=== PATIENT | female | born 1990 | race Caucasian/White ===

== ENCOUNTER 2017-01-06 15:08 | Emergency (ER) | payer OTHER ==
[2017-01-06 15:18] VITALS: BP 123/73; PULSE 88; TEMP 98.3; BMI 21.6
--- NOTE | 2017-01-06 16:15 | PDOC ---
Post Exposure HPI - General Chief Complaint: Non EmpBld/Body Flud Exposure Stated Complaint: STABBED BY NEEDLE Time Seen by Provider: 01/06/17 15:27 - History of Present Illness Initial Comments: 01/06/17 15:50 CHIEF COMPLAINT: needle stick HISTORY OF PRESENT ILLNESS: 26 yo F with no PMH presents to fast track s/p needle exposure. 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 She reports that she "did not see anything suspicious" in the patient' s chart but requests that she get tested for HIV, Hep C, Hep B, and syphilis " so I can say that I did my part and the facility can do theirs and follow up to test the patient." She denies any current symptoms. PAST MEDICAL HISTORY: Denies past medical history FAMILY HISTORY: Denies SOCIAL HISTORY: Denies tobacco, alcohol, illicit drug use. SURGICAL HISTORY: Denies ALLERGIES: PCN REVIEW OF SYSTEMS General/Constitutional: Denies fever or chills. Denies weakness, weight change. HEENT: Denies change in vision. Denies ear pain or discharge. Denies sore throat. Cardiovascular: Denies chest pain or shortness of breath. Respiratory: Denies cough, wheezing, or hemoptysis. Gastrointestinal: Denies nausea, vomiting, diarrhea or constipation. Denies rectal bleeding. Genitourinary: Denies dysuria, frequency, or change in urination. Musculoskeletal: Denies joint or muscle swelling or pain. Denies neck or back pain. Skin and breasts: Denies rash or easy bruising. Neurologic: Denies headache, vertigo, loss of consciousness, or loss of sensation. PHYSICAL EXAM General Appearance: Well-appearing, appropriately dressed. No apparent distress. HEENT: EOMI, PERRLA, normal ENT inspection, normal voice, TMs normal, pharynx normal. No conjunctival pallor. No photophobia, scleral icterus. Neck: Supple. Trachea midline. No tenderness, rigidity, carotid bruit, stridor , lymphadenopathy, or thyromegaly. Respiratory/Chest: Lungs CTAB. No shortness of breath, chest tenderness, respiratory distress, accessory muscle use. No crackles, rales, rhonchi, stridor , wheezing, dullness Cardiovascular: RRR. S1, S2. No JVD, murmur, bradycardia, tachycardia. Vascular Pulses: Dorsalis-Pedis (R): 2+, Dorsalis-Pedis (L): 2+ Gastrointestinal/Abdominal: Normal bowel sounds. Abdomen soft, non-distended. No tenderness or rebound tenderness. No organomegaly, pulsatile mass, guarding , hernia, hepatomegaly, splenomegaly. Lymphatic: No adenopathy, tenderness. Musculoskeletal/Extremities: Normal inspection. FROM of all extremities, normal capillary refill. Pelvis Stable. No CVA tenderness. No tenderness to extremities, pedal edema, swelling, erythema or deformity. Integumentary: Appropriate color, dry, warm. 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 Fully oriented, alert. Appropriate mood/affect. Motor strength 5/5. No appreciable EOM palsy, facial droop or sensory deficit. Past History - Past Medical History Allergies/Adverse Reactions: Allergies Penicillins Allergy (Verified 01/06/17 15:13) Home Medications: Ambulatory Orders NK [No Known Home Medication] 01/06/17 - Immunization History Tetanus Status: Unknown - Social History Smoking Status: Never smoked *Physical Exam - Vital Signs Last Vital Signs Temp Pulse Resp BP Pulse Ox 98.3 F 88 18 123/73 100 01/06/17 15:14 01/06/17 15:14 01/06/17 15:14 01/06/17 15:14 01/06/17 15:14 Medical Decision Making - Medical Decision Making 01/06/17 16:15 26 yo F with no PMH presents to fast track s/p needle exposure. Patient requests testing for HIV, Hep B/C, Syphilis. Patient states she does not want to start on any prophylactic medications. 01/06/17 17:31 HIV status negative. Patient states she will get retested in 6 weeks and f/u with her primary care provider. Advised patient of signs and symptoms for return to ER; patient verbalized understanding and agrees to plan. *DC/Admit/Observation/Transfer Diagnosis at time of Disposition: Needle stick injury - Discharge Dispostion Disposition: HOME Condition at time of disposition: Stable Admit: No - Referrals - Patient Instructions Additional Instructions: As discussed, you must follow up for the remainder of your labs. Please call us in 2 days if you do not hear back regarding the results of your bloodwork. Please follow up with your primary care provider for continued monitoring of your needlestick injury and repeat labwork. If you develop any fever, nausea, vomiting, diarrhea, sore throat, headache, sweating, or any new or concerning symptoms, please return to the ER.
[2017-01-06 17:06] LABS: HIV 1 & 2 AB NEGATIVE; HIV 1 AGp24 NEGATIVE
[2017-01-09 00:09] LABS: HEP B SURFACE AB Reactive (.)
== END 2017-01-06 18:03 | disposition home or self-care (01) ==
LOC: JERFT 15:08
DX: Z77.21 Contact with and (suspected) exposure to potentially hazardous body fluids (principal); S61.432A Puncture wound without foreign body of left hand, initial encounter; W46.1XXA Contact with contaminated hypodermic needle, initial encounter; Y93.F9 Activity, other caregiving; Y92.238 Other place in hospital as the place of occurrence of the external cause; Y99.0 Civilian activity done for income or pay
CPT/HCPCS: 36415; 86593; 86704; 86706; 86803; 87340; 87389; 99281-25